=== PATIENT | male | born 1965 | race Caucasian/White ===

== ENCOUNTER 2020-11-24 21:36 | Emergency (ER) | payer BC ==
[~2020-11-24] VITALS: Ht 177.8 cm; Wt 120.2 kg
[2020-11-24] MEDS ORDERED: LISINOPRIL10 MG PO (21:50)
[2020-11-25] MEDS ORDERED: ZOFRAN4 MG PO (00:02)
--- NOTE | 2020-11-25 22:04 | EKG ---
[facility] [address] [facility] [address] [place] [address] Signed Normal sinus rhythm Normal ECG No previous ECGs available Confirmed by GLADYS YUN MD ([id number] on 11/25/2020 10:04:27 PM Electronically Signed By: GLADYS YUN MD 11/25/202203 PATIENT NAME: GORDY WELLS Electrocardiogram DATE OF : 63 PHYSICIAN: GLADYS YUN MD REPORT #: [id number] REPORT IS CONFIDENTIAL AND NOT TO BE RELEASED WITHOUT AUTHORIZATION
== END 2020-11-25 00:25 | disposition home or self-care (01) ==
LOC: ED 21:36
DX: K52.9 Noninfective gastroenteritis and colitis, unspecified (principal); R55 Syncope and collapse; I10 Essential (primary) hypertension; Z79.899 Other long term (current) drug therapy
CPT/HCPCS: 80053; 83735; 84484; 85025; 93005; 93010; 99284-25; C9803; U0003